=== PATIENT | male | born 1940 | race Two or more races ===

== ENCOUNTER 2017-06-14 19:20 | Inpatient (IN) | payer MEDICARE, MEDICAID ==
[2017-06-14] MEDS ORDERED: ZOLPIDEM TARTRATE 5 MG TABLET PO PRN (21:30)
[2017-06-14] MEDS ORDERED: ACETAMINOPHEN 325 MG TABLET PO PRN (21:30)
[2017-06-14] MEDS ORDERED: MAGNESIUM HYDROXIDE 30 ML UDC PO PRN (21:30)
[2017-06-14] MEDS ORDERED: MAG HYDROX/AL HYDROX/SIMETH 30 ML UDC PO PRN (21:30)
[2017-06-14] MEDS ORDERED: DIFL5DRO LEFTEYE (22:06)
[2017-06-14] MEDS ORDERED: OMEP20CA10 PO (22:06)
[2017-06-14] MEDS ORDERED: CARB1TAB19 PO (22:06)
[2017-06-14] MEDS ORDERED: ATOR40TA PO (22:06)
[2017-06-14] MEDS ORDERED: LISI10TA5 PO (22:06)
[2017-06-14] MEDS ORDERED: MIDO10TA PO (22:06)
[2017-06-14] MEDS ORDERED: POTA10TA15 PO (22:06)
[2017-06-14] MEDS ORDERED: MEMA10TA21 PO (22:06)
[2017-06-14] MEDS ORDERED: FLUD0.1T3 PO (22:06)
[2017-06-14] MEDS ORDERED: DONE10TA44 PO (22:06)
[2017-06-14] MEDS ORDERED: ASPI1CPM7 PO (22:06)
[2017-06-14] MEDS ORDERED: CARB-134 PO (22:06)
[2017-06-14] MEDS ORDERED: FOLI1TAB16 PO (22:06)
[2017-06-14] MEDS ORDERED: AMAN100C16 (22:06)
[2017-06-14] MEDS ORDERED: MIDO2.5T PO (22:06)
[2017-06-15] MEDS ORDERED: DIFL5DRO OP (00:28)
[2017-06-15] MEDS ORDERED: CYAN100071 PO (00:29)
[2017-06-15] MEDS: MEMANTINE HCL 5 MG TABLET PO SCH (17:26)
[2017-06-15] MEDS: CARBIDOPA/LEVODOPA 10/100 MG 1 UDTAB PO SCH (20:59)
[2017-06-15] MEDS: CARBIDOPA/LEVODOPA 25/100 MG 1 UDTAB PO SCH (20:59)
[2017-06-15] MEDS: ENTACAPONE 200 MG TABLET PO SCH (21:04)
[2017-06-15] MEDS: DONEPEZIL 5 MG TABLET PO SCH (22:16)
[2017-06-15] MEDS: QUETIAPINE FUMARATE 25 MG TABLET PO SCH (22:17)
[2017-06-16] MEDS ORDERED: FLUDROCORTISONE 0.1 MG TABLET PO SCH (09:00)
[2017-06-16] MEDS: PANTOPRAZOLE 40 MG TABLET.DR PO SCH (10:11)
[2017-06-16] MEDS: MEMANTINE HCL 5 MG TABLET PO SCH ×2 (10:12→17:48)
[2017-06-16] MEDS: ATORVASTATIN 40 MG TABLET PO SCH (10:12)
[2017-06-16] MEDS: FOLIC ACID 1 MG TABLET PO SCH (10:13)
[2017-06-16] MEDS: LISINOPRIL (10MG) 10 MG TABLET PO SCH (10:13)
[2017-06-16] MEDS: CYANOCOBALAMIN 500 MCG TABLET PO SCH (10:14)
[2017-06-16] MEDS: POTASSIUM CHLORIDE 10 MEQ TABLET.SA PO SCH (10:15)
[2017-06-16] MEDS: AMANTADINE HCL 100 MG CAPSULE PO SCH ×2 (10:16→17:47)
[2017-06-16] MEDS: CARBIDOPA/LEVODOPA 10/100 MG 1 UDTAB PO SCH ×3 (10:16→20:16)
[2017-06-16] MEDS: MIDODRINE HCL (5MG) 5 MG TABLET PO SCH ×2 (10:17→12:37)
[2017-06-16] MEDS: AGGRENOX(ASA/DIPYRIDAMOLE) 1 CAP CPMP.12HR PO SCH (10:23)
[2017-06-16] MEDS: CARBIDOPA/LEVODOPA 25/100 MG 1 UDTAB PO SCH ×3 (11:40→20:16)
[2017-06-16] MEDS: ENTACAPONE 200 MG TABLET PO SCH ×3 (11:40→20:16)
[2017-06-16] MEDS ORDERED: hydrALAZINE HCL 25 MG TABLET PO ONE ×2 (16:00)
[2017-06-16] MEDS: QUETIAPINE FUMARATE 25 MG TABLET PO SCH (21:11)
[2017-06-16] MEDS: DONEPEZIL 5 MG TABLET PO SCH (21:12)
[2017-06-17] MEDS: AMANTADINE HCL 100 MG CAPSULE PO SCH ×2 (08:31→16:44)
[2017-06-17] MEDS: CARBIDOPA/LEVODOPA 10/100 MG 1 UDTAB PO SCH ×3 (08:31→20:48)
[2017-06-17] MEDS: FOLIC ACID 1 MG TABLET PO SCH (08:32)
[2017-06-17] MEDS: MEMANTINE HCL 5 MG TABLET PO SCH ×2 (08:32→16:43)
[2017-06-17] MEDS: CYANOCOBALAMIN 500 MCG TABLET PO SCH (08:32)
[2017-06-17] MEDS: POTASSIUM CHLORIDE 10 MEQ TABLET.SA PO SCH (08:32)
[2017-06-17] MEDS: CARBIDOPA/LEVODOPA 25/100 MG 1 UDTAB PO SCH ×3 (08:32→20:48)
[2017-06-17] MEDS: ATORVASTATIN 40 MG TABLET PO SCH (08:32)
[2017-06-17] MEDS: PANTOPRAZOLE 40 MG TABLET.DR PO SCH (08:32)
[2017-06-17] MEDS: LISINOPRIL (10MG) 10 MG TABLET PO SCH (08:32)
[2017-06-17] MEDS: ENTACAPONE 200 MG TABLET PO SCH ×3 (09:41→20:48)
[2017-06-17] MEDS: AGGRENOX(ASA/DIPYRIDAMOLE) 1 CAP CPMP.12HR PO SCH (09:41)
[2017-06-17] MEDS: LORAZEPAM 0.5 MG TABLET PO PRN (16:43)
[2017-06-17] MEDS: QUETIAPINE FUMARATE 25 MG TABLET PO SCH (21:32)
[2017-06-17] MEDS: DONEPEZIL 5 MG TABLET PO SCH (21:33)
[2017-06-18] MEDS: CARBIDOPA/LEVODOPA 25/100 MG 1 UDTAB PO SCH ×3 (09:00→21:49)
[2017-06-18] MEDS: CARBIDOPA/LEVODOPA 10/100 MG 1 UDTAB PO SCH ×3 (09:00→21:47)
[2017-06-18] MEDS: PANTOPRAZOLE 40 MG TABLET.DR PO SCH (09:24)
[2017-06-18] MEDS: MEMANTINE HCL 5 MG TABLET PO SCH ×2 (09:24→17:35)
[2017-06-18] MEDS: AGGRENOX(ASA/DIPYRIDAMOLE) 1 CAP CPMP.12HR PO SCH (09:24)
[2017-06-18] MEDS: FOLIC ACID 1 MG TABLET PO SCH (09:24)
[2017-06-18] MEDS: ATORVASTATIN 40 MG TABLET PO SCH (09:25)
[2017-06-18] MEDS: ENTACAPONE 200 MG TABLET PO SCH ×3 (09:25→21:48)
[2017-06-18] MEDS: AMANTADINE HCL 100 MG CAPSULE PO SCH ×2 (09:25→17:35)
[2017-06-18] MEDS: POTASSIUM CHLORIDE 10 MEQ TABLET.SA PO SCH (09:25)
[2017-06-18] MEDS: CYANOCOBALAMIN 500 MCG TABLET PO SCH (09:25)
[2017-06-18] MEDS: LISINOPRIL (10MG) 10 MG TABLET PO SCH (09:26)
[2017-06-18] MEDS: QUETIAPINE FUMARATE 25 MG TABLET PO SCH (21:47)
[2017-06-18] MEDS: DONEPEZIL 5 MG TABLET PO SCH (21:48)
[2017-06-19] MEDS: PANTOPRAZOLE 40 MG TABLET.DR PO SCH (08:48)
[2017-06-19] MEDS: CYANOCOBALAMIN 500 MCG TABLET PO SCH (10:03)
[2017-06-19] MEDS: FOLIC ACID 1 MG TABLET PO SCH (10:03)
[2017-06-19] MEDS: ENTACAPONE 200 MG TABLET PO SCH ×3 (10:03→21:43)
[2017-06-19] MEDS: CARBIDOPA/LEVODOPA 25/100 MG 1 UDTAB PO SCH ×3 (10:03→21:43)
[2017-06-19] MEDS: AMANTADINE HCL 100 MG CAPSULE PO SCH ×2 (10:04→17:23)
[2017-06-19] MEDS: AGGRENOX(ASA/DIPYRIDAMOLE) 1 CAP CPMP.12HR PO SCH (10:04)
[2017-06-19] MEDS: MEMANTINE HCL 5 MG TABLET PO SCH ×2 (10:04→17:23)
[2017-06-19] MEDS: ATORVASTATIN 40 MG TABLET PO SCH (10:04)
[2017-06-19] MEDS: POTASSIUM CHLORIDE 10 MEQ TABLET.SA PO SCH (10:04)
[2017-06-19] MEDS: CARBIDOPA/LEVODOPA 10/100 MG 1 UDTAB PO SCH ×3 (10:04→21:44)
[2017-06-19] MEDS: LISINOPRIL (10MG) 10 MG TABLET PO SCH (10:05)
[2017-06-19] MEDS: DONEPEZIL 5 MG TABLET PO SCH (21:44)
[2017-06-19] MEDS: QUETIAPINE FUMARATE 25 MG TABLET PO SCH (21:44)
[2017-06-20] MEDS: CARBIDOPA/LEVODOPA 10/100 MG 1 UDTAB PO SCH ×3 (08:52→20:08)
[2017-06-20] MEDS: CYANOCOBALAMIN 500 MCG TABLET PO SCH (08:52)
[2017-06-20] MEDS: POTASSIUM CHLORIDE 10 MEQ TABLET.SA PO SCH (08:52)
[2017-06-20] MEDS: AGGRENOX(ASA/DIPYRIDAMOLE) 1 CAP CPMP.12HR PO SCH (08:52)
[2017-06-20] MEDS: CARBIDOPA/LEVODOPA 25/100 MG 1 UDTAB PO SCH ×3 (08:52→20:08)
[2017-06-20] MEDS: AMANTADINE HCL 100 MG CAPSULE PO SCH ×2 (08:52→16:27)
[2017-06-20] MEDS: ATORVASTATIN 40 MG TABLET PO SCH (08:52)
[2017-06-20] MEDS: PANTOPRAZOLE 40 MG TABLET.DR PO SCH (08:52)
[2017-06-20] MEDS: MEMANTINE HCL 5 MG TABLET PO SCH ×2 (08:53→16:27)
[2017-06-20] MEDS: LORAZEPAM 0.5 MG TABLET PO PRN (08:56)
[2017-06-20] MEDS: LISINOPRIL (10MG) 10 MG TABLET PO SCH (08:56)
[2017-06-20] MEDS: ENTACAPONE 200 MG TABLET PO SCH ×3 (09:05→20:08)
[2017-06-20] MEDS: FOLIC ACID 1 MG TABLET PO SCH (09:05)
[2017-06-20] MEDS: QUETIAPINE FUMARATE 25 MG TABLET PO SCH (21:23)
[2017-06-20] MEDS: DONEPEZIL 5 MG TABLET PO SCH (21:24)
[2017-06-21] MEDS: CARBIDOPA/LEVODOPA 10/100 MG 1 UDTAB PO SCH ×3 (08:49→21:57)
[2017-06-21] MEDS: CARBIDOPA/LEVODOPA 25/100 MG 1 UDTAB PO SCH ×3 (08:50→21:57)
[2017-06-21] MEDS: CYANOCOBALAMIN 500 MCG TABLET PO SCH (08:50)
[2017-06-21] MEDS: ATORVASTATIN 40 MG TABLET PO SCH (08:50)
[2017-06-21] MEDS: AMANTADINE HCL 100 MG CAPSULE PO SCH ×2 (08:50→17:10)
[2017-06-21] MEDS: FOLIC ACID 1 MG TABLET PO SCH (08:51)
[2017-06-21] MEDS: POTASSIUM CHLORIDE 10 MEQ TABLET.SA PO SCH (08:51)
[2017-06-21] MEDS: MEMANTINE HCL 5 MG TABLET PO SCH ×2 (08:51→17:10)
[2017-06-21] MEDS: LISINOPRIL (10MG) 10 MG TABLET PO SCH (08:52)
[2017-06-21] MEDS: PANTOPRAZOLE 40 MG TABLET.DR PO SCH (08:55)
[2017-06-21] MEDS: ENTACAPONE 200 MG TABLET PO SCH ×3 (08:55→21:57)
[2017-06-21] MEDS: AGGRENOX(ASA/DIPYRIDAMOLE) 1 CAP CPMP.12HR PO SCH (11:43)
[2017-06-21] MEDS: LORAZEPAM 0.5 MG TABLET PO PRN (15:59)
[2017-06-21] MEDS: DONEPEZIL 5 MG TABLET PO SCH (21:57)
[2017-06-21] MEDS: QUETIAPINE FUMARATE 25 MG TABLET PO SCH (21:57)
[2017-06-22] MEDS: FOLIC ACID 1 MG TABLET PO SCH (08:43)
[2017-06-22] MEDS: PANTOPRAZOLE 40 MG TABLET.DR PO SCH (08:43)
[2017-06-22] MEDS: CARBIDOPA/LEVODOPA 10/100 MG 1 UDTAB PO SCH ×3 (08:43→20:33)
[2017-06-22] MEDS: CARBIDOPA/LEVODOPA 25/100 MG 1 UDTAB PO SCH ×3 (08:43→20:33)
[2017-06-22] MEDS: POTASSIUM CHLORIDE 10 MEQ TABLET.SA PO SCH (08:43)
[2017-06-22] MEDS: CYANOCOBALAMIN 500 MCG TABLET PO SCH (08:43)
[2017-06-22] MEDS: ENTACAPONE 200 MG TABLET PO SCH ×3 (08:44→20:33)
[2017-06-22] MEDS: AGGRENOX(ASA/DIPYRIDAMOLE) 1 CAP CPMP.12HR PO SCH (08:44)
[2017-06-22] MEDS: MEMANTINE HCL 5 MG TABLET PO SCH ×2 (08:44→16:35)
[2017-06-22] MEDS: AMANTADINE HCL 100 MG CAPSULE PO SCH ×2 (08:44→16:35)
[2017-06-22] MEDS: LISINOPRIL (10MG) 10 MG TABLET PO SCH (08:44)
[2017-06-22] MEDS: ATORVASTATIN 40 MG TABLET PO SCH (08:44)
[2017-06-22] MEDS: DONEPEZIL 5 MG TABLET PO SCH (21:28)
[2017-06-22] MEDS: QUETIAPINE FUMARATE 25 MG TABLET PO SCH (21:29)
[2017-06-22] MEDS: LORAZEPAM 0.5 MG TABLET PO PRN (23:51)
[2017-06-23] MEDS: LISINOPRIL (10MG) 10 MG TABLET PO SCH (09:00)
[2017-06-23] MEDS: MEMANTINE HCL 5 MG TABLET PO SCH ×2 (09:58→18:41)
[2017-06-23] MEDS: ATORVASTATIN 40 MG TABLET PO SCH (09:58)
[2017-06-23] MEDS: AMANTADINE HCL 100 MG CAPSULE PO SCH ×2 (09:59→18:43)
[2017-06-23] MEDS: FOLIC ACID 1 MG TABLET PO SCH (09:59)
[2017-06-23] MEDS: CYANOCOBALAMIN 500 MCG TABLET PO SCH (09:59)
[2017-06-23] MEDS: CARBIDOPA/LEVODOPA 25/100 MG 1 UDTAB PO SCH ×3 (09:59→21:06)
[2017-06-23] MEDS: PANTOPRAZOLE 40 MG TABLET.DR PO SCH (09:59)
[2017-06-23] MEDS: ENTACAPONE 200 MG TABLET PO SCH ×3 (09:59→21:05)
[2017-06-23] MEDS: CARBIDOPA/LEVODOPA 10/100 MG 1 UDTAB PO SCH ×3 (10:00→21:06)
[2017-06-23] MEDS: AGGRENOX(ASA/DIPYRIDAMOLE) 1 CAP CPMP.12HR PO SCH (10:00)
[2017-06-23] MEDS: POTASSIUM CHLORIDE 10 MEQ TABLET.SA PO SCH (10:01)
[2017-06-23] MEDS: DONEPEZIL 5 MG TABLET PO SCH (21:06)
[2017-06-23] MEDS: QUETIAPINE FUMARATE 25 MG TABLET PO SCH (21:34)
[2017-06-24] MEDS: CYANOCOBALAMIN 500 MCG TABLET PO SCH (09:02)
[2017-06-24] MEDS: MEMANTINE HCL 5 MG TABLET PO SCH ×2 (09:02→17:00)
[2017-06-24] MEDS: FOLIC ACID 1 MG TABLET PO SCH (09:02)
[2017-06-24] MEDS: CARBIDOPA/LEVODOPA 10/100 MG 1 UDTAB PO SCH ×3 (09:02→20:11)
[2017-06-24] MEDS: AMANTADINE HCL 100 MG CAPSULE PO SCH ×2 (09:02→17:01)
[2017-06-24] MEDS: POTASSIUM CHLORIDE 10 MEQ TABLET.SA PO SCH (09:02)
[2017-06-24] MEDS: ENTACAPONE 200 MG TABLET PO SCH ×3 (09:02→20:10)
[2017-06-24] MEDS: PANTOPRAZOLE 40 MG TABLET.DR PO SCH (09:02)
[2017-06-24] MEDS: AGGRENOX(ASA/DIPYRIDAMOLE) 1 CAP CPMP.12HR PO SCH (09:02)
[2017-06-24] MEDS: CARBIDOPA/LEVODOPA 25/100 MG 1 UDTAB PO SCH ×3 (09:02→20:11)
[2017-06-24] MEDS: LISINOPRIL (10MG) 10 MG TABLET PO SCH (09:03)
[2017-06-24] MEDS: ATORVASTATIN 40 MG TABLET PO SCH (09:03)
[2017-06-24] MEDS: DONEPEZIL 5 MG TABLET PO SCH (21:15)
[2017-06-24] MEDS ORDERED: QUETIAPINE FUMARATE 25 MG TABLET PO SCH (22:00)
[2017-06-25] MEDS: MEMANTINE HCL 5 MG TABLET PO SCH (08:08)
[2017-06-25] MEDS: CARBIDOPA/LEVODOPA 25/100 MG 1 UDTAB PO SCH (08:08)
[2017-06-25] MEDS: AGGRENOX(ASA/DIPYRIDAMOLE) 1 CAP CPMP.12HR PO SCH (08:08)
[2017-06-25] MEDS: ATORVASTATIN 40 MG TABLET PO SCH (08:09)
[2017-06-25] MEDS: FOLIC ACID 1 MG TABLET PO SCH (08:09)
[2017-06-25] MEDS: POTASSIUM CHLORIDE 10 MEQ TABLET.SA PO SCH (08:09)
[2017-06-25] MEDS: ENTACAPONE 200 MG TABLET PO SCH (08:09)
[2017-06-25] MEDS: LISINOPRIL (10MG) 10 MG TABLET PO SCH (08:09)
[2017-06-25] MEDS: CARBIDOPA/LEVODOPA 10/100 MG 1 UDTAB PO SCH (08:09)
[2017-06-25] MEDS: CYANOCOBALAMIN 500 MCG TABLET PO SCH (08:09)
[2017-06-25] MEDS: PANTOPRAZOLE 40 MG TABLET.DR PO SCH (08:10)
[2017-06-25] MEDS: AMANTADINE HCL 100 MG CAPSULE PO SCH (08:33)
== END 2017-06-25 13:50 | DRG 885 ==
DX: F23 Brief psychotic disorder (principal); N17.0 Acute kidney failure with tubular necrosis; E87.0 Hyperosmolality and hypernatremia; G20 Parkinson's disease; D63.8 Anemia in other chronic diseases classified elsewhere; S50.811A Abrasion of right forearm, initial encounter; F03.90 Unspecified dementia, unspecified severity, without behavioral disturbance, psychotic disturbance, mood disturbance, and anxiety; F41.9 Anxiety disorder, unspecified; I16.0 Hypertensive urgency; E86.1 Hypovolemia; K21.9 Gastro-esophageal reflux disease without esophagitis; E78.5 Hyperlipidemia, unspecified; L89.891 Pressure ulcer of other site, stage 1; S50.812A Abrasion of left forearm, initial encounter; S51.812A Laceration without foreign body of left forearm, initial encounter; S51.811A Laceration without foreign body of right forearm, initial encounter; X58.XXXA Exposure to other specified factors, initial encounter; Y92.89 Other specified places as the place of occurrence of the external cause; I10 Essential (primary) hypertension; Z86.73 Personal history of transient ischemic attack (TIA), and cerebral infarction without residual deficits